=== PATIENT | female | born 1980 | race Caucasian/White ===

== ENCOUNTER 2024-06-02 18:16 | Emergency (ER) | payer OTHER ==
[~2024-06-02] VITALS: Ht 157.5 cm; Wt 95.3 kg
[2024-06-02 18:23] VITALS: BP_SYST 121; PULSE 63; RESP 18; TEMP 98.3; O2SAT 96
[2024-06-02 18:58] LABS: BASOPHILS # (AUTO) 0.1 K/uL (0.0-0.2); BASOPHILS % (AUTO) 0.6 % (0.0-2.0); EOSINOPHILS # (AUTO) 0.1 K/uL (0.0-0.4); EOSINOPHILS % (AUTO) 1.5 % (0.0-4.0); HEMATOCRIT 42.4 % (36-48); HEMOGLOBIN 14.4 g/dL (12.0-16.0); LYMPHOCYTES # (AUTO) 2.2 K/uL (1.0-5.5); MEAN CORPUSCULAR HEMOGLOBIN 30 pg (27-31); MEAN CORPUSCULAR HGB CONC 34 % (32-36); MEAN CORPUSCULAR VOLUME 87 fL (79.0-98.0); MONOCYTES # (AUTO) 0.6 K/uL (0.0-1.0); MONOCYTES % (AUTO) 7.3 % (1.7-9.3); NEUTROPHILS # (AUTO) 5.1 K/uL (1.8-7.7); NEUTROPHILS % (AUTO) 63.6 % (40.0-70.0); PLATELET COUNT (AUTO) 214 K/uL (130-430); RED BLOOD CELL COUNT(AUTO) 4.87 MIL/uL (4.2-6.2); RED CELL DISTRIBUTION WIDTH 13.4 % (9.0-15.0); WHITE BLOOD COUNT (AUTO) 8.1 K/uL (4.8-10.8)
[2024-06-02] MEDS: ASPIRIN 325 MG TABLET PO ONE (19:26)
[2024-06-02 19:27] LABS: ANION GAP 8 (5-15); CALCIUM 8.9 mg/dL (8.4-11.0); CARBON DIOXIDE 27 mmol/L (23-29); CHLORIDE 103 mmol/L (98-107); CREATININE 0.79 mg/dL (0.55-1.30); GFR AFRICAN AMERICAN 102 mL/min (>90); GLUCOSE 101 mg/dL (74-106); POTASSIUM 4.2 mmol/L (3.5-5.1); SODIUM SERUM 138 mmol/L (136-145); UREA NITROGEN, BLOOD 16 mg/dL (8-21)
[2024-06-02 19:32] LABS: GFR NON AFRICAN-AMERICAN 84 mL/min (>90)
[2024-06-02] MEDS ORDERED: iohexoL 350 mgI/mL, 100 ML INFUS..BTL IV ONE (19:56)
[2024-06-02] MEDS ORDERED: CEFU250T85 PO (23:10)
[2024-06-02] MEDS ORDERED: ZIT250 PO (23:10)
[2024-06-02] MEDS ORDERED: IBUP-1969 PO (23:11)
[2024-06-02] MEDS: AZITHROMYCIN 250 MG TABLET PO ONE (23:18)
[2024-06-02] MEDS: cefTRIAXone 1 GM IVPB PREMIX 50 ML IV ONE (23:18)
[2024-06-02 23:56] VITALS: BP_SYST 118; PULSE 57; RESP 18; TEMP 98.3; O2SAT 96
== END 2024-06-02 23:56 | disposition home or self-care (01) ==
LOC: SED 18:16
DX: J18.9 Pneumonia, unspecified organism (principal); R06.00 Dyspnea, unspecified; R07.89 Other chest pain; Z79.899 Other long term (current) drug therapy; Z79.2 Long term (current) use of antibiotics
CPT/HCPCS: 99285; 96365; 71275; 80048; 83880; 85025; 85379; 84484; 36415; 93005; Q9967; J0696; Q0144